=== PATIENT | male | born 2000 | race Caucasian/White ===

== ENCOUNTER 2019-10-16 12:23 | Emergency (ER) | payer MEDICAID ==
--- NOTE | 2019-10-16 13:22 | EDM.PDOC ---
ED HPI GENERAL MEDICAL PROBLEM - General Chief Complaint: ENT Problem Stated Complaint: FEVER, SORE THROAT, BODY ACHES/CHILLS Time Seen by Provider: 10/16/19 13:14 Source of Information: Reports: Patient, RN Notes Reviewed History Limitations: Reports: No Limitations - History of Present Illness INITIAL COMMENTS - FREE TEXT/NARRATIVE: 19-year-old gentleman presents emergency department a complaint of fever body aches and sore throat, he states his been ill for about 3 days he feels his tonsils are markedly enlarged no other complaints Chest Pain Score (Numeric/FACES): 2 - Related Data Allergies Allergy/AdvReac Type Severity Reaction Status Date / Time No Known Allergies Allergy Verified 10/16/19 12:46 Home Meds: Home Meds Amoxicillin 875 mg PO BID #20 tablet 10/16/19 [Rx] Past Medical History - Infectious Disease History Infectious Disease History: Reports: None Social & Family History - Tobacco Use Second Hand Smoke Exposure: No - Caffeine Use Caffeine Use: Reports: Soda - Alcohol Use Days Per Week of Alcohol Use: 1 Number of Drinks Per Day: 4 Total Drinks Per Week: 4 - Recreational Drug Use Recreational Drug Use: No ED ROS ENT - Review of Systems Review Of Systems: See Below Constitutional: Reports: Fever, Chills HEENT: Reports: Throat Pain, Throat Swelling Respiratory: Reports: No Symptoms Cardiovascular: Reports: No Symptoms ED EXAM, ENT - Physical Exam Exam: See Below Exam Limited By: No Limitations General Appearance: Alert, WD/WN, No Apparent Distress Mouth/Throat: Normal Gums, Normal Lips, Normal Teeth, Pharyngeal Erythema, Tonsillar Erythema, Tonsillar Exudates, Tonsillar Swelling Head: Atraumatic, Normocephalic Neck: Normal Inspection, Lymphadenopathy (R), Lymphadenopathy (L) Respiratory/Chest: No Respiratory Distress, Lungs Clear, Normal Breath Sounds, No Accessory Muscle Use, Chest Non-Tender Cardiovascular: Regular Rate, Rhythm, No Murmur Course - Vital Signs Last Recorded V/S: Last Vital Signs Temp 97.3 F 10/16/19 12:43 Pulse 97 10/16/19 12:43 Resp 16 10/16/19 12:43 BP 121/85 10/16/19 12:43 Pulse Ox 99 10/16/19 12:43 Departure - Departure Time of Disposition: 13:22 Disposition: Home, Self-Care 01 Condition: Fair Clinical Impression: Exudative pharyngitis - Discharge Information Prescriptions: Amoxicillin 875 mg PO BID #20 tablet Instructions: Strep Throat, Adult, [id number], Pharyngitis, [id number] Referrals: PCP,None [Primary Care Provider] - Additional Instructions: Take full course of antibiotics,, your antibiotics have been faxed to [facility], please followup with your primary care provider in 5-7 days if not better, please call return to the emergency department with worsening of symptoms. Sepsis Event Note (ED) - Evaluation Sepsis Screening Result: Possible Sepsis Risk - Focused Exam Vital Signs: Vital Signs Temp Pulse Resp BP Pulse Ox 10/16/19 12:43 97.3 F 97 16 121/85 99 - Assessment/Plan Plan: Assessment Acuity = acute Site and laterality = exudative pharyngitis Etiology = suspicious for underlying bacterial cause Manifestations = none Location of injury = Home Lab values = none Plan Elected to treat empirically amoxicillin 875 p.o. twice daily x10 days follow-up primary care in 5 to 7 days if not better This note was dictated using [employer] voice recognition software please call with any questions on syntax or grammar.
== END 2019-10-16 13:32 | disposition home or self-care (01) ==
LOC: JP.ED 12:23
DX: J02.9 Acute pharyngitis, unspecified (principal)
CPT/HCPCS: 99283